=== PATIENT | female | born 1965 | race Caucasian/White ===

== ENCOUNTER 2017-10-14 11:55 | Emergency (ER) | payer SELFPAY ==
--- NOTE | 2017-10-14 12:19 | ER Document Report ---
ED Medical Screen (RME) - General Chief Complaint: Weakness Stated Complaint: LEG WEAKNESS Time Seen by Provider: 10/14/17 12:15 Notes: Patient complains of one-week of progressive leg weakness. She states it is very hard for her to walk. no significant pmh. denies pain TRAVEL OUTSIDE OF THE [place] IN LAST 30 DAYS: No - Related Data Allergies/Adverse Reactions: No Known Allergies Allergy (Unverified 10/14/17 12:03) Past Medical History Renal/ Medical History: Denies: Hx Peritoneal Dialysis Physical Exam - Vital signs Vitals: Temp Pulse Resp BP Pulse Ox 97.6 F 79 16 152/83 H 100 10/14/17 12:02 10/14/17 12:02 10/14/17 12:02 10/14/17 12:02 10/14/17 12:02 Course - Vital Signs Vital signs: Temp Pulse Resp BP Pulse Ox 97.6 F 79 16 152/83 H 100 10/14/17 12:02 10/14/17 12:02 10/14/17 12:02 10/14/17 12:02 10/14/17 12:02
[2017-10-14 12:39] LABS: ABSOLUTE MONOCYTES (AUTO) 0.5 10^3/uL (0.1-1.4); ABSOLUTE NEUT (AUTO) 6.9 10^3/uL (1.7-8.2); BASOPHILS % (AUTO) 0.5 % (0-2); EOSINOPHILS % (AUTO) 0.1 % (0-6); HEMATOCRIT 42.7 % (36.0-47.0); HEMOGLOBIN 14.5 g/dL (12.0-15.5); LYMPHOCYTES % (AUTO) 21.3 % (13-45); MEAN CORPUSCULAR HEMOGLOBIN 31.7 pg (27.0-33.4); MEAN CORPUSCULAR HGB CONC 33.9 g/dL (32.0-36.0); MEAN CORPUSCULAR VOLUME 93 fl (80-97); MONOCYTES % (AUTO) 4.8 % (3-13); PLATELET COUNT 263 10^3/uL (150-450); RED BLOOD COUNT 4.57 10^6/uL (3.72-5.28); RED CELL DISTRIBUTION WIDTH 13.9 % (11.5-14.0); SEGMENTED NEUTROPHILS % (AUTO) 73.3 % (42-78); TOTAL CELLS COUNTED % (AUTO) 100 %; WHITE BLOOD COUNT 9.5 10^3/uL (4.0-10.5)
[2017-10-14 12:56] LABS: ALANINE AMINOTRANSFERASE 30 U/L (9-52); ALBUMIN 4.8 g/dL (3.5-5.0); ALKALINE PHOSPHATASE 108 U/L (38-126); ANION GAP 10 (5-19); ASPARTATE AMINO TRANSFERASE 18 U/L (14-36); BILIRUBIN,DIRECT 0.1 mg/dL (0.0-0.4); BILIRUBIN,TOTAL 0.6 mg/dL (0.2-1.3); BLOOD UREA NITROGEN 7 mg/dL (7-20); CALCIUM 10.4 mg/dL (8.4-10.2); CARBON DIOXIDE 30 mmol/L (22-30); CHLORIDE 105 mmol/L (98-107); GLUCOSE 101 mg/dL (75-110); POTASSIUM 4.6 mmol/L (3.6-5.0); SODIUM 145.2 mmol/L (137-145)
--- NOTE | 2017-10-14 13:06 | RADIOLOGY REPORT (SQ) ---
EXAM DESCRIPTION: CT HEAD WITHOUT COMPLETED DATE/TIME: 10/14/2017 12:53 pm REASON FOR STUDY: legs weak COMPARISON: None. TECHNIQUE: Axial images acquired through the brain without intravenous contrast. Images reviewed wi th bone, brain and subdural windows. Additional sagittal and coronal reconstructions were generated. Images stored on PACS. All CT scanners at this facility use dose modulation, iterative reconstruction, and/or weight based d osing when appropriate to reduce radiation dose to as low as reasonably achievable (ALARA). [facility]: Dose Right [facility]: CareDose [facility]: Dose Right [facility]: Teradose 4D [facility]: QRGL RADIATION DOSE: CT Rad equipment meets quality standard of care and radiation dose reduction techniq ues were employed. CTDIvol: 53.2 mGy. DLP: 1017 mGy-cm. mGy. LIMITATIONS: None. FINDINGS: VENTRICLES: Normal size and contour. CEREBRUM: No masses. No hemorrhage. No midline shift. No evidence for acute infarction. Normal gra y/white matter differentiation. No areas of low density in the white matter. CEREBELLUM: No masses. No hemorrhage. No alteration of density. No evidence for acute infarction. EXTRAAXIAL SPACES: No fluid collections. No masses. ORBITS AND GLOBE: No intra- or extraconal masses. Normal contour of globe without masses. CALVARIUM: No fracture. PARANASAL SINUSES: No fluid or mucosal thickening. SOFT TISSUES: No mass or hematoma. OTHER: No other significant finding. IMPRESSION: NORMAL BRAIN CT WITHOUT CONTRAST. EVIDENCE OF ACUTE STROKE: NO. COMMENT: Quality ID # [id number]: Final reports with documentation of one or more dose reduction techniques (e.g., Automated exposure control, adjustment of the mA and/or kV according to patient size, use of iterative reconstruction technique) TECHNICAL DOCUMENTATION: JOB ID: [id number] [employer]- All Rights Reserved Reading location - IP/workstation name: [email or web address]
[2017-10-14] MEDS ORDERED: NORMAL SALINE 1000 ML 500 ML IV PRN (14:10)
[2017-10-14] MEDS ORDERED: NORMAL SALINE 1000 ML 1,000 ML IV ONE (14:10)
--- NOTE | 2017-10-14 14:14 | ER Document Report ---
ED General - General Chief Complaint: Weakness Stated Complaint: LEG WEAKNESS Time Seen by Provider: 10/14/17 12:15 Mode of Arrival: Ambulatory Information source: Patient Notes: History of complain-52 years old female presents today with general malaise, general weakness, with a history of anemia, having lower extremity weakness. She states that she walks around in the house chose, climb the stairs without any discomfort. Denies any headache dizziness focal weakness numbness tingling sensation. Denies any neck pain neck stiffness. Denies any chest pain shortness of breath wheezing. Denies any palpitation or diaphoresis. Denies any nausea vomiting diarrhea dysuria frequency urgency. REVIEW OF SYSTEMS: CONSTITUTIONAL : Denies fever, chills, or sweats. Denies recent illness. EENT: Denies eye, ear, throat, or mouth pain or symptoms. Denies nasal or sinus congestion or discharge. Denies throat, tongue, or mouth swelling or difficulty swallowing. CARDIOVASCULAR: Denies chest pain. Denies palpitations or racing or irregular heart beat. Denies ankle edema. RESPIRATORY: Denies cough, cold, or chest congestion. Denies shortness of breath, difficulty breathing, or wheezing. GASTROINTESTINAL: Denies abdominal pain or distention. Denies nausea, vomiting , or diarrhea. Denies blood in vomitus, stools, or per rectum. Denies black, tarry stools. Denies constipation. GENITOURINARY: Denies difficulty urinating, painful urination, burning, frequency, blood in urine, or discharge. FEMALE GENITOURINARY: Denies vaginal bleeding, heavy or abnormal periods, irregular periods. Denies vaginal discharge or odor. MUSCULOSKELETAL: Denies back or neck pain or stiffness. Denies joint pain or swelling. SKIN: Denies rash, lesions or sores. HEMATOLOGIC : Denies easy bruising or bleeding. LYMPHATIC: Denies swollen, enlarged glands. NEUROLOGICAL: Denies confusion or altered mental status. Denies passing out or loss of consciousness. Denies dizziness or lightheadedness. Denies headache. Denies weakness or paralysis or loss of use of either side. Denies problems with gait or speech. Denies sensory loss, numbness, or tingling. Denies seizures. PSYCHIATRIC: Denies anxiety or stress. Denies depression, suicidal ideation, or homicidal ideation. ALL OTHER SYSTEMS REVIEWED AND NEGATIVE. PHYSICAL EXAMINATION: GENERAL: Well-appearing, well-nourished and in no acute distress. HEAD: Atraumatic, normocephalic. EYES: Pupils equal round and reactive to light, extraocular movements intact, conjunctiva are normal. ENT: Nares patent, oropharynx clear without exudates. Moist mucous membranes. NECK: Normal range of motion, supple without lymphadenopathy LUNGS: Breath sounds clear to auscultation bilaterally and equal. No wheezes rales or rhonchi. HEART: Regular rate and rhythm without murmurs ABDOMEN: Soft, nontender, nondistended abdomen. No guarding, no rebound. No masses appreciated. Female : deferred Musculoskeletal: Normal range of motion, no pitting or edema. No cyanosis. NEUROLOGICAL: Cranial nerves grossly intact. Normal speech, normal gait. Normal sensory, motor exams PSYCH: Normal mood, normal affect. SKIN: Warm, Dry, normal turgor, no rashes or lesions noted. Dictation was performed using [employer] voice recognition software TRAVEL OUTSIDE OF THE [place] IN LAST 30 DAYS: No - HPI Onset: Just prior to arrival - Related Data Allergies/Adverse Reactions: No Known Allergies Allergy (Unverified 10/14/17 12:03) Past Medical History - Social History Smoking Status: Unknown if Ever Smoked Frequency of alcohol use: Rare Family History: Reviewed & Not Pertinent Patient has suicidal ideation: No Patient has homicidal ideation: No Renal/ Medical History: Denies: Hx Peritoneal Dialysis Review of Systems - Review of Systems Notes: As per history of complain Physical Exam - Vital signs Vitals: Temp Pulse Resp BP Pulse Ox 97.6 F 79 16 152/83 H 100 10/14/17 12:02 10/14/17 12:02 10/14/17 12:02 10/14/17 12:02 10/14/17 12:02 Course - Re-evaluation Re-evalutation: 10/14/17 16:08 Given IV fluid - Vital Signs Vital signs: Temp Pulse Resp BP Pulse Ox 98.9 F 89 16 131/75 H 99 10/14/17 17:04 10/14/17 17:04 10/14/17 17:04 10/14/17 17:04 10/14/17 17:04 - Laboratory Result Diagrams: 10/14/17 12:25 10/14/17 12:25 Laboratory results interpreted by me: 10/14/17 12:25 Sodium 145.2 H Calcium 10.4 H Discharge - Discharge Clinical Impression: General weakness, Dehydration Condition: Fair Disposition: HOME, SELF-CARE Instructions: Dehydration ([facility])
[2017-10-14 17:05] VITALS: BP 131/75
== END 2017-10-14 17:08 | disposition home or self-care (01) ==
LOC: ER 11:55
DX: R53.1 Weakness (principal); E86.0 Dehydration; R53.81 Other malaise
CPT/HCPCS: 99285; 36415; 85025; 80053; 70450; J7030

== ENCOUNTER 2019-06-14 15:20 | Emergency (ER) | payer SELFPAY ==
--- NOTE | 2019-06-14 15:34 | ER Document Report ---
ED Medical Screen (RME) - General Chief Complaint: Other Stated Complaint: SPITTING UP BLOOD Time Seen by Provider: 06/14/19 15:31 Mode of Arrival: Wheelchair Information source: Patient Notes: 54-year-old female presented to ED for complaint of feeling like she has something stuck in her throat. She did eat a baked potato about 230. She states that short time after that she felt like she had some stuck on her throat coughed a couple times and then spit out a small amount of blood. She became concerned and came to the emergency room. She does have a medical history of elevated blood pressure, heart murmur. She states she does not have any history of surgeries. He denies alcohol smoking or drugs. I have greeted and performed a rapid initial assessment of this patient. A com prehensive ED assessment and evaluation of the patient, analysis of test results and completion of medical decision making process will be conducted by an additional ED providers. TRAVEL OUTSIDE OF THE [place] IN LAST 30 DAYS: No - Related Data Allergies/Adverse Reactions: No Known Allergies Allergy (Verified 06/14/19 16:11) Past Medical History Renal/ Medical History: Denies: Hx Peritoneal Dialysis Physical Exam - Vital signs Vitals: Temp Pulse Resp BP Pulse Ox 97.9 F 96 17 150/90 H 96 06/14/19 15:30 06/14/19 15:30 06/14/19 15:30 06/14/19 15:30 06/14/19 15:30 Course - Vital Signs Vital signs: Temp Pulse Resp BP Pulse Ox 97.9 F 96 17 150/90 H 96 06/14/19 15:30 06/14/19 15:30 06/14/19 15:30 06/14/19 15:30 06/14/19 15:30 - Laboratory Result Diagrams: 06/14/19 15:45 06/14/19 15:45 Laboratory results interpreted by me: 06/14/19 06/14/19 15:45 15:45 WBC 13.0 H Absolute Neuts (auto) 9.2 H Sodium 130.8 L Chloride 94 L Doctor's Discharge - Discharge Clinical Impression: Foreign body sensation in throat Condition: Stable Disposition: HOME, SELF-CARE Additional Instructions: You were seen in the emergency department today with concerns for possible for eign body in your throat. The symptoms have now resolved. The CAT scan of your throat was normal, your blood work also looked okay. Please follow-up with your primary care provider. Return to the emergency department with any new or worsening symptoms.
[2019-06-14 15:36] VITALS: BP 150/90
--- NOTE | 2019-06-14 16:17 | RADIOLOGY REPORT (SQ) ---
EXAM DESCRIPTION: SOFT TISSUE NECK COMPLETED DATE/TIME: 06/14/2019 4:07 pm REASON FOR STUDY: feels like food in throat COMPARISON: None. NUMBER OF VIEWS: Two views. TECHNIQUE: AP and lateral radiographic image of the soft tissues of the neck. LIMITATIONS: None. FINDINGS: EPIGLOTTIS: Normal. Contour normal. Aryepiglottic folds normal. SUBGLOTTIC AREA: Normal. No narrowing. HYPOPHARYNX: On the lateral view, several tiny less than 3 mm nodules are projected over the hypopha rynx. This could represent minimal debris in the hypopharynx. This could also represent mucosal nod ularity. No radiopaque retained foreign body in the hypopharynx. PREVERTEBRAL SOFT TISSUES: Normal. No soft tissue swelling. RETROPHARYNGEAL SPACE: Normal. No soft tissue masses. BONES: No significant findings. LUNG APICES: Normal. OTHER: No radiopaque foreign body. No other significant finding. IMPRESSION: Several tiny less than 3 mm nodules are projected over the hypopharynx. This could repr esent retained debris in the hypopharynx or, mucosal nodularity. No airway compromise or significant prevertebral soft tissue swelling/soft tissue gas. TECHNICAL DOCUMENTATION: JOB ID: [id number] [employer]- All Rights Reserved Reading location - IP/workstation name: [email or web address]
[2019-06-14 16:22] LABS: ABSOLUTE MONOCYTES (AUTO) 0.7 10^3/uL (0.1-1.4); ABSOLUTE NEUT (AUTO) 9.2 10^3/uL (1.7-8.2); BASOPHILS % (AUTO) 0.3 % (0-2); EOSINOPHILS % (AUTO) 0.3 % (0-6); HEMATOCRIT 39.7 % (36.0-47.0); HEMOGLOBIN 13.5 g/dL (12.0-15.5); LYMPHOCYTES % (AUTO) 22.8 % (13-45); MEAN CORPUSCULAR VOLUME 94 fl (80-97); MONOCYTES % (AUTO) 5.7 % (3-13); PLATELET COUNT 279 10^3/uL (150-450); RED BLOOD COUNT 4.22 10^6/uL (3.72-5.28); RED CELL DISTRIBUTION WIDTH 13.3 % (11.5-14.0); SEGMENTED NEUTROPHILS % (AUTO) 70.9 % (42-78); TOTAL CELLS COUNTED % (AUTO) 100 %
[2019-06-14 16:40] LABS: ALBUMIN 4.3 g/dL (3.5-5.0); ALKALINE PHOSPHATASE 91 U/L (38-126); ANION GAP 12 (5-19); ASPARTATE AMINO TRANSFERASE 21 U/L (14-36); BILIRUBIN,DIRECT 0.1 mg/dL (0.0-0.4); BILIRUBIN,TOTAL 0.5 mg/dL (0.2-1.3); BLOOD UREA NITROGEN 7 mg/dL (7-20); CALCIUM 9.6 mg/dL (8.4-10.2); CARBON DIOXIDE 25 mmol/L (22-30); CHLORIDE 94 mmol/L (98-107); GLUCOSE 101 mg/dL (75-110); POTASSIUM 4.2 mmol/L (3.6-5.0); TOTAL PROTEIN 7.4 g/dL (6.3-8.2)
--- NOTE | 2019-06-14 17:25 | ER Document Report ---
HPI - HPI Time Seen by Provider: 06/14/19 15:31 Pain Level: Denies Notes: 54-year-old female presented to ED for complaint of feeling like she has something stuck in her throat. She did eat a baked potato about 230. She states that short time after that she felt like she had some stuck on her throat coughed a couple times and then spit out a small amount of blood. She became concerned and came to the emergency room. - REPRODUCTIVE Reproductive: DENIES: : Past Medical History - General Information source: Patient - Social History Smoking Status: Former Smoker Chew tobacco use (# tins/day): No Frequency of alcohol use: None Drug Abuse: None Family History: Reviewed & Not Pertinent Patient has suicidal ideation: No Patient has homicidal ideation: No - Medical History Medical History: Negative Renal/ Medical History: Denies: Hx Peritoneal Dialysis Surgical Hx: Negative - Immunizations Immunizations up to date: Yes Vertical Provider Document - CONSTITUTIONAL Notes: PHYSICAL EXAMINATION: GENERAL: Well-appearing, well-nourished and in no acute distress. HEAD: Atraumatic, normocephalic. EYES: Pupils equal round extraocular movements intact, conjunctiva are normal. ENT: Nares patent, swallowing without difficulty, no obvious airway obstruction visualized. NECK: Normal range of motion LUNGS: No respiratory distress Musculoskeletal: Normal range of motion NEUROLOGICAL: Normal speech, normal gait. PSYCH: Normal mood, normal affect. SKIN: Warm, Dry, normal turgor, no rashes or lesions noted. - INFECTION CONTROL TRAVEL OUTSIDE OF THE [place] IN LAST 30 DAYS: No Course - Re-evaluation Re-evalutation: Patient reports symptoms have resolved at the time of my evaluation. Patient requesting discharge home. Patient given p.o. trial, she is able to swallow liquids without difficulty. The patient's emergency department workup and current diagnosis were explained to the patient and or family. Follow-up instructions were provided. M edications if prescribed were discussed. Instructions for when to return to the emergency department including specific worrisome symptoms were discussed with the patient and/or family. - Vital Signs Vital signs: Temp Pulse Resp BP Pulse Ox 97.9 F 96 17 150/90 H 96 06/14/19 15:30 06/14/19 15:30 06/14/19 15:30 06/14/19 15:30 06/14/19 15:30 - Laboratory Result Diagrams: 06/14/19 15:45 06/14/19 15:45 Laboratory results interpreted by me: 06/14/19 06/14/19 15:45 15:45 WBC 13.0 H Absolute Neuts (auto) 9.2 H Sodium 130.8 L Chloride 94 L Discharge - Discharge Clinical Impression: Foreign body sensation in throat Condition: Stable Disposition: HOME, SELF-CARE Additional Instructions: You were seen in the emergency department today with concerns for possible foreign body in your throat. The symptoms have now resolved. The CAT scan of your throat was normal, your blood work also looked okay. Please follow-up with your primary care provider. Return to the emergency department with any new or worsening symptoms.
== END 2019-06-14 17:30 | disposition home or self-care (01) ==
LOC: ER 15:20
DX: R09.89 Other specified symptoms and signs involving the circulatory and respiratory systems (principal); R04.2 Hemoptysis
CPT/HCPCS: 36415; 70360; 80053; 85025; 99283